=== PATIENT | male | born 1985 | race Two or more races ===

== ENCOUNTER 2020-07-11 11:49 | Emergency (ER) | payer OTHER ==
[~2020-07-11] VITALS: Ht 180.3 cm; Wt 65.8 kg
--- NOTE | 2020-07-11 11:49 | NUR ---
PT BIB SELF C/O CHEST PRESSURE NON RADIATING SINCE LAST NIGHT. 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 WILL CONTINUE TO MONITOR.
--- NOTE | 2020-07-11 12:10 | NUR ---
SEEN AND EXAMINED BY .
--- NOTE | 2020-07-11 12:13 | NUR ---
ER PHLEB AT BEDSIDE FOR BLOOD DRAW.
[2020-07-11 12:27] LABS: BASOPHILS % (AUTO) 0.2 % (0.0-2.0); EOSINOPHILS % (AUTO) 0.4 % (0.0-6.0); HEMATOCRIT 41 % (39-51); HEMOGLOBIN 13.6 g/dL (13.5-17.5); LYMPHOCYTES # (AUTO) 6.9 /CMM (0.8-4.8); LYMPHOCYTES % (AUTO) 44.1 % (20.0-44.0); MEAN CORPUSCULAR HGB CONC 33 g/dl (31.0-36.0); MEAN CORPUSCULAR VOLUME 88 fL (80-96); MONOCYTES # (AUTO) 2.7 /CMM (0.1-1.30); MONOCYTES % (AUTO) 17.2 % (2.0-12.0); NEUTROPHILS % (AUTO) 38.1 % (43.0-81.0); PLATELET COUNT (AUTO) 170 /CMM (150-450); RED BLOOD CELL COUNT(AUTO) 4.68 MIL/uL (4.5-6.0); WHITE BLOOD COUNT (AUTO) 15.8 K/uL (4.3-11.0)
[2020-07-11 12:35] LABS: CALCIUM, SERUM 8.7 mg/dL (8.5-10.1); CARBON DIOXIDE 25 mmol/L (21-32); CHLORIDE 102 mmol/L (98-107); GLUCOSE 88 mg/dL (74-106); POTASSIUM 3.5 mmol/L (3.5-5.1); SODIUM SERUM 136 mmol/L (136-145); UREA NITROGEN, BLOOD 19 mg/dL (7-18)
[2020-07-11 13:07] LABS: BAND % (MANUAL) 7 % (0.0-5.0); LYMPHOCYTES % (MANUAL) 41 % (16-48); MONOCYTES % (MANUAL) 15 % (0-11.0); NEUTROPHILS % (MANUAL) 37 (42-76)
--- NOTE | 2020-07-11 13:27 | NUR ---
Patient discharged to home in stable condition. Written and verbal after care instructions given. Patient verbalizes understanding of instruction.
[2020-07-11 13:28] VITALS: BP 122/77
== END 2020-07-11 13:29 | disposition home or self-care (01) ==
LOC: ER 11:55
DX: R07.89 Other chest pain (principal)
CPT/HCPCS: 36415; 71045-TC; 80048-TC; 84484-TC; 85025-TC